=== PATIENT | male | born 1950 | race Caucasian/White ===

== ENCOUNTER 2016-12-03 10:46 | Inpatient (IN) | payer OTHER ==
[~2016-12-03] VITALS: Ht 177.8 cm; Wt 78.1 kg
[2016-12-03 12:53] LABS: BASOPHIL COUNT 0.1 K/uL (0-0.1); EOSINOPHIL (%) 1.1 % (0-5); EOSINOPHIL COUNT 0.2 K/uL (0-0.3); HEMATOCRIT 45.4 % (38.0-50.0); IMMATURE GRANULOCYTE (%) 0.5 % (0.0-0.7); IMMATURE GRANULOCYTE COUNT 0.1 K/uL; INSTRUMENT ABS NEUTROPHIL CT 13.9 K/uL; LYMPHOCYTE COUNT 3.1 K/uL (1.0-2.8); MCH 29.2 PG (29.0-34.0); MCHC 34.6 G/DL (30.0-36.0); MCV 84.5 FL (86-99); MEAN PLAT.VOLUME 9.5 uM^3 (9.0-12.4); MONOCYTE (%) 7.6 % (3-12); MONOCYTE COUNT 1.4 K/uL (0-0.8); NEUTROPHIL (%) 73.7 % (45-76); NEUTROPHIL COUNT 13.9 K/uL (1.8-6.4); PLATELET COUNT 350 K/uL (156-360); RBC DIS.WIDTH-CV 14.3 % (11.8-14.6); RBC DIS.WIDTH-SD 43.8 % (39-53); RED BLOOD COUNT 5.37 M/uL (4.00-5.50); WHITE BLOOD COUNT 18.9 K/uL (4.1-10.2)
[2016-12-03 13:03] LABS: CHLORIDE 104 mEq/L (99-109); POTASSIUM 3.4 mEq/L (3.7-5.4); SODIUM 137 mEq/L (136-147)
[2016-12-03 13:05] LABS: GLUCOSE 115 mg/dL (70-99)
[2016-12-03 13:07] LABS: ANION GAP 9 MEQ/L (2-14); TOTAL BILIRUBIN 0.6 mg/dL (0.0-1.0)
[2016-12-03 13:09] LABS: ALKALINE PHOSPHATASE 75 IU/L (3-129); GFR ESTIMATE (CALCULATED) > 59 mL/min/
[2016-12-03 13:10] LABS: UREA NITROGEN (BUN) 20 mg/dL (9-23)
[2016-12-03] MEDS ORDERED: LOW DOSE ASPIRI81 M1 PO (15:44)
[2016-12-03] MEDS ORDERED: PRINZIDE 10-121 EACH PO (15:47)
[2016-12-03] MEDS ORDERED: LIPITOR80 MG PO (15:49)
[2016-12-03 19:54] VITALS: BP 142/84
[2016-12-03 20:00] VITALS: BP 129/60
[2016-12-04] VITALS (8 sets, daily range): BP systolic 129–154; BP diastolic 60–88
[2016-12-04 07:22] LABS: ANION GAP 11 MEQ/L (2-14); CHLORIDE 104 MEQ/L (99-109); GFR ESTIMATE (CALCULATED) > 59 mL/min/; GLUCOSE 130 mg/dL (70-99); SAMPLE HEMOLYSIS CHECK 0; SAMPLE ICTERIC CHECK 0; SAMPLE LIPEMIA CHECK 0; SODIUM 139 MEQ/L (136-147); UREA NITROGEN (BUN) 17 mg/dL (9-23)
[2016-12-04 07:28] LABS: HEMATOCRIT 38.7 % (38.0-50.0); MCV 84.9 FL (86-99)
[2016-12-04 07:29] LABS: POTASSIUM 4.1 MEQ/L (3.7-5.4)
[2016-12-05 04:02] VITALS: BP 162/85
[2016-12-05 06:23] LABS: HEMATOCRIT 32.8 % (38.0-50.0); MCV 86.3 FL (86-99)
[2016-12-05 07:48] VITALS: BP 136/86
[2016-12-05 12:00] VITALS: BP 129/78
[2016-12-05 15:48] VITALS: BP 146/87
[2016-12-05 19:40] VITALS: BP 138/73
[2016-12-05 23:41] VITALS: BP 123/64
[2016-12-06 04:06] VITALS: BP 120/65
[2016-12-06] MEDS ORDERED: OXYCODONE HCL5 MG PO ×2 (07:41→17:46)
[2016-12-06] MEDS ORDERED: ELIQUIS2.5 MG PO (07:41)
[2016-12-06 10:53] VITALS: BP 142/70
[2016-12-06] MEDS ORDERED: SENNA-DOCUSATE1 EAC1 PO (17:43)
[2016-12-06] MEDS ORDERED: DAILY VITE1 EAC1 PO (17:44)
[2016-12-06] MEDS ORDERED: VITAMIN D2000 UNI1 PO (17:44)
[2016-12-06] MEDS ORDERED: OXYCODONE HCL10 MG PO (17:47)
[2016-12-06] MEDS ORDERED: COLACE100 MG PO (17:47)
[2016-12-06] MEDS ORDERED: DULCOLAX10 MG PR (17:48)
== END 2016-12-06 15:49 | DRG 482 ==
LOC: EME → EDBD 10:46 → EDOF 13:02 → 3EAST 13:02
PROVIDERS: Emergency Medicine; Orthopaedic Surgery
PROC: 0QS704Z Reposition Left Upper Femur with Internal Fixation Device, Open Approach (ICD-10-PCS; principal; 2016-12-03)
DX: S72.142A Displaced intertrochanteric fracture of left femur, initial encounter for closed fracture (principal); D72.829 Elevated white blood cell count, unspecified; F17.200 Nicotine dependence, unspecified, uncomplicated; W01.0XXA Fall on same level from slipping, tripping and stumbling without subsequent striking against object, initial encounter; M25.552 Pain in left hip; R06.09 Other forms of dyspnea; R49.0 Dysphonia; S32.592D Other specified fracture of left pubis, subsequent encounter for fracture with routine healing
CPT/HCPCS: 71010; 73501; 73502; 73552; 73560; 76000; 80048; 80053; 85014; 85018; 85025; 86900; 86901; 93005; 99281; 99285; C1713; J0131; J0690; J1100; J1170; J2250; J2405; J3010; J7120

== ENCOUNTER 2016-12-06 16:00 | Inpatient (IN) | payer OTHER ==
[~2016-12-06] VITALS: Ht 177.8 cm; Wt 85.1 kg
[~2016-12-06 16:00] MED LIST: ELIQUIS2.5 MG PO; LIPITOR80 MG PO; LOW DOSE ASPIRI81 M1 PO; OXYCODONE HCL5 MG PO; PRINZIDE 10-121 EACH PO
[2016-12-06 16:40] VITALS: BP 130/73
[2016-12-06] MEDS ORDERED: SENNA-DOCUSATE1 EAC1 PO (17:43)
[2016-12-06] MEDS ORDERED: DAILY VITE1 EAC1 PO (17:44)
[2016-12-06] MEDS ORDERED: VITAMIN D2000 UNI1 PO (17:44)
[2016-12-06] MEDS ORDERED: OXYCODONE HCL5 MG PO (17:46)
[2016-12-06] MEDS ORDERED: OXYCODONE HCL10 MG PO (17:47)
[2016-12-06] MEDS ORDERED: COLACE100 MG PO (17:47)
[2016-12-06] MEDS ORDERED: DULCOLAX10 MG PR (17:48)
[2016-12-06 18:59] LABS: HEMATOCRIT 35.3 % (38.0-50.0); MCH 29.6 PG (29.0-34.0); MCHC 34.3 G/DL (30.0-36.0); MCV 86.3 FL (86-99); MEAN PLAT.VOLUME 10.4 uM^3 (9.0-12.4); PLATELET COUNT 309 K/uL (156-360); RBC DIS.WIDTH-CV 14.6 % (11.8-14.6); RBC DIS.WIDTH-SD 45.7 % (39-53); WHITE BLOOD COUNT 22.6 K/uL (4.1-10.2)
[2016-12-06 19:13] LABS: ALKALINE PHOSPHATASE 53 IU/L (3-129); ANION GAP 9 MEQ/L (2-14); CHLORIDE 101 MEQ/L (99-109); GFR ESTIMATE (CALCULATED) > 59 mL/min/; GLUCOSE 118 mg/dL (70-99); SAMPLE HEMOLYSIS CHECK 0; SAMPLE ICTERIC CHECK 0; SAMPLE LIPEMIA CHECK 0; SODIUM 139 MEQ/L (136-147); TOTAL BILIRUBIN 0.9 MG/DL (0.0-1.0); UREA NITROGEN (BUN) 19 mg/dL (9-23)
[2016-12-06 19:15] LABS: POTASSIUM 3.2 MEQ/L (3.7-5.4); RED BLOOD COUNT 4.09 M/uL (4.00-5.50)
[2016-12-06 23:50] VITALS: BP 123/71
[2016-12-07 05:05] VITALS: BP 116/75
[2016-12-07 12:51] LABS: ADD MIUA? YES; BILIRUBIN NEGATIVE; BLOOD SMALL; COLOR YELLOW ((YELLOW)); GLUCOSE (STRIP) NEGATIVE; KETONES NEGATIVE; LEUKOCYTES NEGATIVE; NITRITE NEGATIVE; PROTEIN (STRIP) NEGATIVE; SPECIFIC GRAVITY 1.016 (1.000-1.030); UROBILINOGEN 0.2 MG/DL (0.2-1.0)
[2016-12-07 12:55] LABS: BACTERIA RARE /HPF; EPITHELIAL CELLS NONE SEEN /HPF; MUCUS TRACE /LPF; WHITE BLOOD CELLS 0-5 /HPF (0-5)
[2016-12-07 15:45] VITALS: BP 132/77
[2016-12-08 06:12] VITALS: BP 126/71
[2016-12-08 06:47] LABS: HEMATOCRIT 34.1 % (38.0-50.0); MCH 28.6 PG (29.0-34.0); MCHC 33.7 G/DL (30.0-36.0); MCV 84.8 FL (86-99); MEAN PLAT.VOLUME 9.3 uM^3 (9.0-12.4); RBC DIS.WIDTH-CV 14.1 % (11.8-14.6); RBC DIS.WIDTH-SD 43.9 % (39-53); RED BLOOD COUNT 4.02 M/uL (4.00-5.50); WHITE BLOOD COUNT 18.6 K/uL (4.1-10.2)
[2016-12-08 06:49] LABS: PLATELET COUNT 407 K/uL (156-360)
[2016-12-08 07:21] LABS: ALKALINE PHOSPHATASE 53 IU/L (3-129); ANION GAP 9 MEQ/L (2-14); CHLORIDE 101 MEQ/L (99-109); GFR ESTIMATE (CALCULATED) > 59 mL/min/; GLUCOSE 101 mg/dL (70-99); POTASSIUM 3.7 MEQ/L (3.7-5.4); SAMPLE HEMOLYSIS CHECK 0; SAMPLE ICTERIC CHECK 0; SAMPLE LIPEMIA CHECK 0; SODIUM 137 MEQ/L (136-147); UREA NITROGEN (BUN) 20 mg/dL (9-23)
[2016-12-08 07:32] LABS: TOTAL BILIRUBIN 1.1 MG/DL (0.0-1.0)
[2016-12-08 15:37] VITALS: BP 133/79
[2016-12-09 05:18] VITALS: BP 136/75
[2016-12-09 15:20] VITALS: BP 106/55
[2016-12-10 05:54] VITALS: BP 109/62
[2016-12-10 15:46] VITALS: BP 143/59
[2016-12-11 05:36] VITALS: BP 101/55
[2016-12-11 14:59] VITALS: BP 118/60
[2016-12-12 05:26] VITALS: BP 113/73
[2016-12-12 15:32] VITALS: BP 108/67
[2016-12-13 04:55] VITALS: BP 112/57
[2016-12-13] MEDS ORDERED: VITAMIN D2000 UNI1 PO (13:18)
[2016-12-13] MEDS ORDERED: POLYETHYLENE GL17 GM PO (13:18)
[2016-12-13] MEDS ORDERED: COLACE100 MG PO (13:18)
[2016-12-13] MEDS ORDERED: SENNA-DOCUSATE1 EAC1 PO (13:18)
== END 2016-12-13 15:30 | DRG 560 ==
LOC: 3WEST 16:00 → ENPENDDIS 12-13 → 3WEST 12-13 15:30
PROVIDERS: Physical Medicine & Rehabilitation Pain Medicine; Psychiatry & Neurology Neurology
PROC: F07M0ZZ Range of Motion and Joint Mobility Treatment of Musculoskeletal System - Whole Body (ICD-10-PCS; principal; 2016-12-06)
DX: S72.142D Displaced intertrochanteric fracture of left femur, subsequent encounter for closed fracture with routine healing (principal); R26.2 Difficulty in walking, not elsewhere classified; R27.0 Ataxia, unspecified; W01.0XXD Fall on same level from slipping, tripping and stumbling without subsequent striking against object, subsequent encounter; D62 Acute posthemorrhagic anemia; D72.829 Elevated white blood cell count, unspecified; E78.5 Hyperlipidemia, unspecified; I10 Essential (primary) hypertension; J44.9 Chronic obstructive pulmonary disease, unspecified; K59.00 Constipation, unspecified; F17.200 Nicotine dependence, unspecified, uncomplicated; Z79.82 Long term (current) use of aspirin
CPT/HCPCS: 71010; 80053; 81003; 85027; 87040; 87086; 97110 GO; 97530 GP